=== PATIENT | female | born 1965 | race Caucasian/White ===

== ENCOUNTER 2024-04-22 05:25 | Emergency (ER) | payer BC, SELFPAY ==
--- NOTE | ~2024-04-22 | CT_ITS ---
EXAMINATION: CT abdomen pelvis wo con DATE: 04/22/2024 06:00 INDICATION: Left flank pain. TECHNIQUE: Computed tomography (CT) of the abdomen and pelvis was performed without intravenous contr ast. Automated exposure control and iterative reconstruction technique were employed. The dose-length product was 315.03 mGy-cm. COMPARISON: None. FINDINGS: The visualized portions of the lung bases demonstrate mild atelectasis. A calcified left jacky ng nodule is consistent with old granulomatous disease. No pleural effusion. The heart size is normal . No pericardial effusion. There is diffuse hepatic steatosis. There are changes of cholecystectomy. Calcifications in the spleen are consistent with old granulomatous disease. The pancreas, adrenal gla nds,, and kidneys are normal. There is no urolithiasis. There are no dilated loops of bowel. The appe ndix is normal. There are no pathologically enlarged lymph nodes. There is no free intraperitoneal fl uid. There is mild thoracic and lumbar spondylosis. There is mild chronic anterior wedging of multipl e thoracic vertebral bodies. IMPRESSION: 1. No urolithiasis. Reviewed, dictated and finalized at location E. IMPRESSION: 1. No urolithiasis.
[2024-04-22 05:31] VITALS: BP 132/92; PULSE 84; RESP 15; TEMP 36.6; O2SAT 99
[2024-04-22] MEDS: ACETAMINOPHEN 500 MG TABLET 1000 MG PO (05:49)
[2024-04-22] MEDS: SODIUM CHLORIDE 0.9% IV 1,000 ML 999 ML IV CONT (05:49)
[2024-04-22] MEDS: ONDANSETRON INJ 4 MG/2 ML VIAL IV PUSH (05:49)
[2024-04-22] MEDS: HYDROmorphone HCL INJ (*CRX) 2 MG/ML VIAL 0.5 MG IV PUSH (05:49)
[2024-04-22 05:51] LABS: Basophils Percent Auto 0.7 % (0.2-1.2); Eosinophils Absolute Auto 0.4 K/mm3 (0-0.3); Eosinophils Percent Auto 6.5 % (0-4.4); Hematocrit 45.8 % (37.0-47.0); Hemoglobin 15.2 g/dL (12.0-15.0); Immature Granulocyte Absolute 0.01 K/mm3 (0.00-0.031); Immature Granulocyte Percent A 0.2 % (0-0.5); Lymphocytes Absolute Auto 2.02 K/mm3 (0.9-3.2); Lymphocytes Percent Auto 37.5 % (18.3-44.2); Mean Corpuscular HGB Conc 33.2 g/dl (32-36); Mean Corpuscular Hemoglobin 30.8 pg (26-34); Mean Corpuscular Volume 92.9 fl (80-100); Mean Platelet Volume 9.2 fl (7.4-10.4); Monocytes Absolute Auto 0.5 K/mm3 (0.1-0.6); Monocytes Percent Auto 9.1 % (2.6-8.5); Neutrophils Absolute Auto 2.5 K/mm3 (1.3-6.7); Platelet Count Result 214 k/mm3 (150-375); Red Blood Count 4.93 M/mm3 (4.2-5.4); Red Cell Distribution Width 12.5 % (11.5-14.5); White Blood Count 5.4 K/mm3 (4.5-10.0)
[2024-04-22 05:53] LABS: Appearance Urine Cloudy (Clear); Bacteria Urine None Seen /hpf; Bilirubin Urine Negative (Negative); Blood Urine Negative (Negative); Color Urine Dark Yellow (Yellow); Glucose Urine UA Negative (Negative); Ketones Urine Trace mg/dL (Negative); Leukocyte Esterase Ur 1+ LEU/UL (Negative); Nitrate Urine Negative (Negative); Protein Urine Trace mg/dL (Negative); RBC Urine 0-2 /hpf (0-2); Squamous Epithelial Cell Urine Occasional /hpf (Few); pH Urine 5.5 (5.0-9.0)
[2024-04-22 05:57] LABS: Specific Grav Ur 1.035 (1.001-1.035)
[2024-04-22 06:01] LABS: Add Urine Microscopic? YES
[2024-04-22 06:06] LABS: Alanine Aminotransferase 212 U/L (6-35); Albumin Level 4.9 g/dL (3.5-5.1); Alkaline Phosphatase 68 U/L (38-126); Anion Gap 8 mmol/L (4-12); Aspartate Amino Transferase 124 U/L (14-36); Bilirubin,Total 0.6 mg/dL (0.2-1.3); Blood Urea Nitrogen 20 mg/dL (7-17); Calcium 9.8 mg/dL (8.4-10.2); Carbon Dioxide 30 mmol/L (22-30); Chloride 103 mmol/L (98-107); Estimated CRCL calculation 87 ml/min; Estimated Glomerular Filt Rate > 60; Glucose 103 mg/dL (65-110); Potassium 3.7 mmol/L (3.4-5.0); Sodium 141 mmol/L (137-145)
--- NOTE | 2024-04-22 06:15 | ED.GENADULT ---
HPI - General Adult General Chief complaint: Back Pain/Injury Stated complaint: L back/flank pain Time Seen by Provider: 04/22/24 05:38 History of Present Illness HPI narrative: This is a 58-year-old female presenting ED with a chief complaint of left flank pain. This been going on and off for a week. His sharp pain that is nonradiating. It is positional and she can sometimes get to improve with movement. She has never had pain like this before. She did have an episode nausea but no vomiting. No urinary pain urgency or frequency. No history of kidney stones. Related Data Home Medications Medication Instructions Recorded Confirmed hydrochlorothiazide 50 mg tablet 50 mg PO DAILY 09/11/19 09/13/19 nebivolol 10 mg tablet (Bystolic) 10 mg PO DAILY 09/11/19 09/13/19 Allergies Allergy/AdvReac Type Severity Reaction Status Date / Time bacitracin Allergy Unknown Verified 09/13/19 07:14 [From Neosporin ([id number])] neomycin Allergy Unknown Verified 09/13/19 07:14 [From Neosporin ([id number])] polymyxin B Allergy Unknown Verified 09/13/19 07:14 [From Neosporin ([id number])] [facility] Past Medical History Medical History (Updated 04/22/24 @ 06:21 by Pop Alcazar MD) Hypertension Exam Narrative: APPEARANCE: No apparent distress. Head: atraumatic. EYES: EOMI, NOSE: Atraumatic NECK: Trachea midline RESPIRATORY: No increased rate of breathing clear auscultation CARDIOVASCULAR: RRR, ABDOMINAL: Non-distended Soft nontender no guarding rebound no CVA tenderness MUSCULOSKELETAl: No obvious deformities NEURO: Alert. Moving 4/4 extremities SKIN:: Warm, dry. Normal color PSYCHIATRIC: Normal affect Course Vital Signs Vital signs: Vital Signs Temperature 97.9 F 04/22/24 05:31 Pulse Rate 84 04/22/24 05:31 Respiratory Rate 15 04/22/24 05:31 Blood Pressure 132/92 H 04/22/24 05:31 Pulse Oximetry 99 04/22/24 05:31 Temperature 97.9 F 04/22/24 05:31 Pulse Rate 84 04/22/24 05:31 Respiratory Rate 15 04/22/24 05:31 Blood Pressure 132/92 H 04/22/24 05:31 Pulse Oximetry 99 06/17/24 05:31 Medical Decision Making [facility] Narrative Medical decision making narrative: -Course: 58-year-old female presenting with left-sided flank pain. CT did not reveal any kidney stones or a cause of her pain. Urine did have 11-20 white blood cells and +1 leuk esterase. No white count or fever in the ED. Given pain medication/ fluids with improvement. Patient's presentation is not completely consistent with pyelonephritis, but will treat her with antibiotics and a course of NSAIDs and see if that improves her symptoms. If not patient is to follow-up with her primary care physician for re-evaluation. Given primary care follow-up and return precautions. -DDX includes but is not limited to: Kidney stone, kidney infection, muscle strain, colitis, gas pain -Co-morbidities complicating care: hypertension -Independent interpretation of studies: CBC normal. Metabolic panel unremarkable. Minor elevations in AST ALT which be followed on outpatient basis. Urine indicative of infection. -Interventions: .5 mg Dilaudid 1000 mg Tylenol, 4 mg Zofran, 1 L normal saline, -Shared decision making / Disposition: discharge -RX Keflex 500 mg b.i.d. x 10 days, Motrin Tylenol Vital Signs Vital Signs: Vital Signs Temperature 97.9 F 04/22/24 05:31 Pulse Rate 84 04/22/24 05:31 Respiratory Rate 15 04/22/24 05:31 Blood Pressure 132/92 H 04/22/24 05:31 Pulse Oximetry 99 04/22/24 05:31 Temperature 97.9 F 04/22/24 05:31 Pulse Rate 84 04/22/24 05:31 Respiratory Rate 15 04/22/24 05:31 Blood Pressure 132/92 H 04/22/24 05:31 Pulse Oximetry 99 04/22/24 05:31 Lab Data 04/22/24 05:43 04/22/24 05:42 Labs: Lab Results 04/22/24 04/22/24 Range/Units 05:42 05:43 WBC 5.4 (4.5-10.0) K/mm3 RBC 4
== END 2024-04-22 06:35 | disposition home or self-care (01) ==
PROVIDERS: Emergency Provider Emergency Medicine; PCP Physician Assistant
DX: N12 Tubulo-interstitial nephritis, not specified as acute or chronic (principal); R10.9 Unspecified abdominal pain; I10 Essential (primary) hypertension
CPT/HCPCS: 36415; 74176; 80053; 81001; 81025; 85025; 87086; 96361; 96374; 96375; 99284; A9270; J1170; J2405; J7030